=== PATIENT | male | born 1980 | race Hispanic/Latino ===

== ENCOUNTER 2017-04-14 21:01 | Inpatient (IN) | payer MEDICAID ==
[2017-04-14 21:20] VITALS: BMI 19.2
[2017-04-14 21:37] LABS: BASO # 0.1 K/uL (0.0-0.2); BASO % 0.9 % (0.0-2.0); EOS # 0.5 K/uL (0.0-0.7); HEMATOCRIT 39.4 % (35.0-51.0); LYMPH # 3.4 K/uL (1.0-4.3); LYMPH % 31.9 % (20.0-40.0); MEAN CELL VOLUME 87.8 fL (80.0-94.0); MEAN CORPUSCULAR HEMOGLOBIN 29.1 pg (27.0-31.0); MEAN CORPUSCULAR HGB CONC 33.2 g/dL (33.0-37.0); MEAN PLATELET VOLUME 7.9 fL (7.2-11.7); MONO # 0.7 K/uL (0.0-0.8); MONO % 6.9 % (0.0-10.0); RED CELL DISTRIBUTION WIDTH 13.8 % (11.5-14.5); WHITE BLOOD COUNT 10.7 K/uL (4.8-10.8)
[2017-04-14 21:42] LABS: RBC URINE 4 /hpf (0-3); URINE BACTERIA RARE (<OCC); URINE BILIRUBIN NEGATIVE (NEGATIVE); URINE BLOOD NEGATIVE (NEGATIVE); URINE COLOR Yellow (YELLOW); URINE GLUCOSE (UA) NORMAL (Normal); URINE KETONE TRACE mg/dL (NEGATIVE); URINE LEUKOCYTE ESTERASE NEG Leu/uL (Negative); URINE PROTEIN NEGATIVE (NEGATIVE); URINE UROBILINOGEN NORMAL mg/dL (0.2-1.0); WBC URINE 1 /hpf (0-5)
[2017-04-14 21:46] LABS: CHLORIDE 101 mmol/L (98-107)
[2017-04-14 21:47] LABS: POTASSIUM 3.4 mmol/L (3.6-5.2); SODIUM 139 mmol/L (132-148)
[2017-04-14 21:49] LABS: ALB/GLOB RATIO 1.3 (1.0-2.1); ALKALINE PHOSPHATASE 50 U/L (38-126); AST/SGOT 35 U/L (17-59); BILIRUBIN,TOTAL 0.5 mg/dL (0.2-1.3); BLOOD UREA NITROGEN 16 mg/dL (9-20); CARBON DIOXIDE 26 mmol/L (22-30); GFR AFRICAN-AMERICAN > 60; TOTAL PROTEIN 6.9 g/dL (6.3-8.3)
[2017-04-14 21:50] LABS: ALCOHOL SERUM < 10 mg/dl (0-10); ALT/SGPT 42 U/L (21-72); CALCIUM 8.6 mg/dl (8.6-10.4); GLUCOSE,RANDOM 114 mg/dL (75-110)
--- NOTE | 2017-04-14 21:55 | C.PDOC ---
History Of Present Illness Patient is a 36 year old male who was brought to the ER by EMS and police for SI and HI. Patient is also a polysubstance abuser requesting detox. Patient is speaking on the phone; it was reported he was making an illusion of a hand gun in his home. Denies any physical complaints at this time. Time Seen by Provider: 04/14/17 21:16 Chief Complaint (Nursing): Substance Abuse History Per: Patient History/Exam Limitations: no limitations Onset/Duration Of Symptoms: Hrs Current Symptoms Are (Timing): Still Present Suicide/Self Injury Attempted (Context): None Modifying Factor(s): None Severity: None Associated Symptoms: Suicidal Thoughts. denies: Depression, Suicidal Plan Recent travel outside of the [place]: No Additional History Per: EMS, Law Enforcement Past Medical History Reviewed: Historical Data, Nursing Documentation, Vital Signs Vital Signs: Last Vital Signs Temp 98.0 F 04/14/17 21:12 Pulse 64 04/14/17 21:12 Resp 18 04/14/17 21:12 BP 137/87 04/14/17 21:12 Pulse Ox 97 04/14/17 23:45 - Medical History PMH: Asthma Surgical History: No Surg Hx - [facility] Procedures DETOXIFICATION SERVICES FOR SUBSTANCE ABUSE TREATMENT (12/02/16) GROUP PAINT LINE OPERATOR FOR SUBSTANCE ABUSE TREATMENT, PSYCHOEDUCATION (12/02/16) GROUP PAINT LINE OPERATOR FOR SUBSTANCE ABUSE, COGNITIVE BEHAVIORAL (12/02/16) PHARMACOTHERAPY FOR SUBSTANCE ABUSE TREATMENT, ANTABUSE (12/02/16) Family History: States: Unknown Family Hx - Social History Hx Alcohol Use: Yes Hx Substance Use: Yes - Immunization History Hx Tetanus Toxoid Vaccination: No Hx Influenza Vaccination: No Hx Pneumococcal Vaccination: No Review Of Systems Constitutional: Negative for: Fever, Chills Gastrointestinal: Negative for: Nausea, Vomiting, Diarrhea Psych: Positive for: Suicidal ideation, Other (Homicidal ideation) Physical Exam - Physical Exam Appears: Non-toxic, No Acute Distress, Other (Pleasant. Cooperative.) Skin: Normal Color, Warm, Dry Head: Atraumatic, Normacephalic Oral Mucosa: Moist Chest: Symmetrical, No Tenderness Cardiovascular: Rhythm Regular, No Murmur Respiratory: Normal Breath Sounds, No Rales, No Rhonchi, No Wheezing Gastrointestinal/Abdominal: Soft, No Tenderness Neurological/Psych: Oriented x3, Normal Speech, Normal Cognition ED Course And Treatment - Laboratory Results Result Diagrams: 04/14/17 09:36 04/14/17 09:36 Lab Interpretation: Abnormal (tox + opiates, cannabanoids, etoh neg.) O2 Sat by Pulse Oximetry: 97 (Room air) Pulse Ox Interpretation: Normal Reevaluation Time: 23:45 Reassessment Condition: Unchanged (remains comfortable, cooperative) Medical Decision Making Medical Decision Makin: pending psych/Crisis dispo 0100: re-eval, calm cooperative signed over to Dr. Jonas for overnight. Disposition - Disposition Disposition Time: 01:00 Condition: GOOD - Clinical Impression Clinical Impression: Drug dependence - Scribe Statement The provider has reviewed the documentation as recorded by the Scribe Moshe Cordova All medical record entries made by the Scribe were at my direction and personally dictated by me. I have reviewed the chart and agree that the record accurately reflects my personal performance of the history, physical exam, medical decision making, and the department course for this patient. I have also personally directed, reviewed, and agree with the discharge instructions and disposition. Physician Patient Turnover Patient Signed Over To: Oscar Jonas Handoff Comments: dispo per Crisis Eval
[2017-04-15] MEDS ORDERED: Potassium Chloride 20 mEq ER Tab PO STA (01:58)
[2017-04-15] MEDS ORDERED: Potassium Chloride 20 mEq ER Tab PO ONE (02:13)
--- NOTE | 2017-04-15 09:58 | PCM.PSYCH ---
Initial Psychiatric Evaluation - Initial Psychiatric Evaluation Type of Admission: Voluntary Legal Status: Capacity Chief Complaint (in patient's own words): "I relapsed" History of Present Illness and Precipitating Events: The pt is seen, chart reviewed, case discussed. He is known from a previous admission this year. 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 He also smokes MJ every other day and cigarettes. Social drinker. Denies other drug use but sometimes takes painkillers. This is his 2nd detox and no rehabs. He went to [place] to be with some family members but he claims he relapsed upon return to [place] few weeks ago. No psych sxs but mild anxiety Past psych hx: Denies but has attended anger mgt classes at [facility] Medical hx: Denies Family psych hx: Denies Current Medications: Active Medications Generic Name Dose Route Start Last Admin Trade Name Freq PRN Reason Stop Dose Admin Gabapentin 300 mg 04/15/17 10:00 Neurontin PO TID CHERYL Trazodone HCl 50 mg 04/15/17 05:31 Desyrel PO HS PRN Insomnia Past Psychiatric History - Past Psychiatric History Previous Treatment History: None Pertinent Medical Hx (Current Medical&Sleep Prob, Allergies): Allergies Allergy/AdvReac Type Severity Reaction Status Date / Time No Known Allergies Allergy Verified 04/14/17 21:20 traZODone [Desyrel] 100 mg PO HS #30 tab 12/05/16 Review of Systems - Psychiatric Psychiatric: Abnormal Sleep Pattern, Anxiety. absent: Depression, Hallucinations, Homicidal Ideation, Memory Loss, Suicidal Ideation Mental Status Examination - Personal Presentation Personal Presentation: Looks younger than stated age - Affect Affect: Broad (odd at times) - Motor Activity Motor Activity: Calm - Reliability in Providing Information Reliability in Providing Information: Good - Speech Speech: Organized - Mood Mood: Anxious - Formal Thought Process Formal Thought Process: No Impairment - Cognitive Functions Orientation: Person, Place, Situation, Time Sensorium: Alert Attention/Concentration: Attentive Estimate of Intelligence: Average Judgement: Intact, as evidence by: Insight regarding need for hospitalization Memory: Recent intact, as evidence by: Ability to recall events of the day - Risk Risk: Withdrawal, Diminished functioning - Strength & Assets Inventory Strength & Assets Inventory: Cooperative DSM 5 DX - DSM 5 DSM 5 Diagnosis: Opioid withdrawal Opioid use d/o - severe cannabis use d/o - severe Tobacco use d/o - severe - Recommended/Plan of Treatment Treatment Recommendations and Plan of Treatment: Subutex detox As needed meds Attend groups and activities [place] and CBT for all three substances Nicotine patch for tobacco Support and psychoed 33 min Projected ELOS: 4 days Prognosis: Good with treatment Discharge Plan and Discharge Criteria: No wdw sxs Attend IOP and consider MAT, ie Vivitrol - Smoking Cessation Smoking Cessation Initiated: Yes
[2017-04-15] MEDS ORDERED: Buprenorphine Hydrochloride 2 mg SL ONE ×3 (12:30→16:45)
[2017-04-15] MEDS ORDERED: Aluminum Hydroxide/Magnesium Hydroxide Susp (30 mL) PO PRN (14:03)
[2017-04-15 17:58] LABS: CHLORIDE 94 mmol/L (98-107); SODIUM 135 mmol/L (132-148)
[2017-04-15 18:01] LABS: BLOOD UREA NITROGEN 17 mg/dL (9-20); CARBON DIOXIDE 32 mmol/L (22-30); GFR AFRICAN-AMERICAN > 60; GLUCOSE,RANDOM 81 mg/dL (75-110)
[2017-04-15 18:02] LABS: CALCIUM 8.9 mg/dl (8.6-10.4); MAGNESIUM 2.1 mg/dL (1.6-2.3)
[2017-04-16] MEDS: Buprenorphine Hydrochloride 2 mg SL SCH (11:24)
--- NOTE | 2017-04-16 12:48 | CARD ---
APPROVED REPORT EKG Measurement Heart [id number] <Conclusion> Normal sinus rhythm with sinus arrhythmia Normal ECG
[2017-04-16] MEDS: Silver Sulfadiazine 1% Cream (20 gm) TOP SCH (17:48)
--- NOTE | 2017-04-17 00:03 | PCM.PYCHPN ---
Psychiatric Progress Note - Psychiatric Progress Note Patient seen today, length of contact: 17 min Patient Chief Complaint: "I was withdrawing" Problems Identified/Issues Discussed: The pt is seen, chart reviewed, case discussed with staff. Support given, CBT and AR used briefly No new symptoms reported, improving slowly and needs some more time No SEs from medications, risks discussed. After care discussed - still vague and evasive. Risks discussed Medication Change: Yes (Silverd[place], detox changes daily) Medical Record Reviewed: Yes Mental Status Examination - Cognitive Function Orientation: Person, Place, Situation, Time Memory: Intact Attention: WNL Concentration: WNL Association: WN Fund of Knowledge: [facility] - Mood Mood: Anxious - Affect Affect: Broad (odd at times) - Speech Speech: Appropriate - Formal Thought Process Formal Thought Process: No Impairment - Suicidal Ideation Suicidal Ideation: No - Homicidal Ideation Homicidal Ideation: No Goal/Treatment Plan - Goal/Treatment Plan Need for Continued Stay: Discharge may exacerbated symptoms, Severe functional impairment Progress Toward Problem(s) and Goals/Treatment Plan: Subutex detox As needed meds Attend groups and activities [place] and CBT for all three substances Nicotine patch for tobacco Support and psychoed Estimated Date of D/C: 04/18/17 - Smoking Cessation Smoking Cessation Initiated: Yes
--- NOTE | 2017-04-17 10:32 | PCM.PYCHPN ---
Psychiatric Progress Note - Psychiatric Progress Note Patient seen today, length of contact: 16 min Patient Chief Complaint: "I am alright" Problems Identified/Issues Discussed: The pt is seen, chart reviewed, case discussed with staff. Support given again, VT used briefly No new symptoms reported, improving slowly and needs some more time No SEs from medications reported. No breakthru sxs After care discussed - still "undecided." Risks of poor after care, incl. relapse and OD discussed. He has an odd, indifferent smile on his face most of the time. Medication Change: Yes (Silverdine, detox changes daily) Medical Record Reviewed: Yes Mental Status Examination - Cognitive Function Orientation: Person, Place, Situation, Time Memory: Intact Attention: WNL Concentration: WNL Association: WNL Fund of Knowledge: WNL - Mood Mood: Anxious - Affect Affect: Broad (odd at times) - Speech Speech: Appropriate - Formal Thought Process Formal Thought Process: No Impairment - Suicidal Ideation Suicidal Ideation: No - Homicidal Ideation Homicidal Ideation: No Goal/Treatment Plan - Goal/Treatment Plan Need for Continued Stay: Discharge may exacerbated symptoms, Severe functional impairment Progress Toward Problem(s) and Goals/Treatment Plan: Subutex detox As needed meds Attend groups and activities [place] and CBT for all three substances Nicotine patch for tobacco Support and psychoed Refer to IOP and MAt Estimated Date of D/C: 04/18/17
[2017-04-17] MEDS: Silver Sulfadiazine 1% Cream (20 gm) TOP SCH ×2 (10:46→18:07)
[2017-04-17] MEDS: Buprenorphine Hydrochloride 2 mg SL SCH (10:46)
[2017-04-18 06:18] VITALS: RESP 18
--- NOTE | 2017-04-18 08:48 | PCM.PYCHDC ---
Mental Status Examination - Mental Status Examination Orientation: Person, Place, Situation, Time Memory: Intact Mood: Neutral Affect: Constricted Speech: Appropriate Attention: WNL Concentration: WNL Association: WNL Fund of Knowledge: WNL Formal Thought Process: No Impairment Suicidal Ideation: No Current Homicidal Ideation?: No Discharge Summary - Discharge Note Reason for Hospitalization: Heroin detox Consultations:: List each consultation separately and include: 1. Reason for request. 2. Findings. 3. Follow-up Summary of Hospital Course include:: 1. Description of specific treatment plan utilized for patients during their course of treatmen. 2. Summarize the time- course for resolution of acute symptoms and/or regressed behaviors. 3. Describe issues identified and worked on during hospitalization. 4. Describe medication utilized. 5. Describe medical problems identified and treated. 6. Reassessment of suicide risk Summary of Hospital Course: On admission: The pt is seen, chart reviewed, case discussed. He is known from a previous admission this year. 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 He also smokes MJ every other day and cigarettes. Social drinker. Denies other drug use but sometimes takes painkillers. This is his 2nd detox and no rehabs. He went to [place] to be with some family members but he claims he relapsed upon return to [place] few weeks ago. No psych sxs but mild anxiety Past psych hx: Denies but has attended anger mgt classes at [facility] [place] Medical hx: Denies Family psych hx: Denies Hospital course: The pt was admitted and started on treatment with psychotherapy, support, psychoeducation and medications. [place] and CBT used. The pt attended groups and activities, as well as milieu therapy. All the risks and benefits of medications are discussed and the patient understood and agreed. He is also given Silveradinbe for his severe sunburn with good result. After care discussed with the patient. He was interested in anything but meetings. Risks discussed MAt recommended. - Final Diagnosis (DSM 5) Condition upon Discharge: GOOD DSM 5: Opioid withdrawal Opioid use d/o - severe cannabis use d/o - severe Tobacco use d/o - severe Disposition: HOME/ ROUTINE Follow-up Treatment Plan: Continue below medications after discharge. Follow after care plan as discussed. Use relapse prevention skills Return to ER or call 911 if suicidal, homicidal or symptoms relapse. Stay away from stress, alcohol and drugs. See primary doctor once a year. Prescriptions/Medication Reconciliation: Gabapentin [Neurontin] 300 mg PO TID #90 cap traZODone [Desyrel] 50 mg PO HS PRN #30 tab PRN Reason: Insomnia
[2017-04-18] MEDS: Silver Sulfadiazine 1% Cream (20 gm) TOP SCH (10:28)
[2017-04-18] MEDS: Buprenorphine Hydrochloride 2 mg SL SCH (10:28)
[2017-04-18 13:23] VITALS: BP 105/60; PULSE 66; TEMP 98.2; O2SAT 98
== END 2017-04-18 14:00 | disposition home or self-care (01) | DRG 745 ==
LOC: C.ER 21:01 → C.7D 04-15 01:35
PROVIDERS: ADMIT Psychiatry & Neurology Psychiatry; ATTEND Psychiatry & Neurology Psychiatry
PROC: HZ2ZZZZ Detoxification Services for Substance Abuse Treatment (ICD-10-PCS; principal; 2017-04-15)
PROC: HZ59ZZZ Individual Psychotherapy for Substance Abuse Treatment, Supportive (ICD-10-PCS; 2017-04-15)
PROC: HZ46ZZZ Group Counseling for Substance Abuse Treatment, Psychoeducation (ICD-10-PCS; 2017-04-15)
PROC: HZ90ZZZ Pharmacotherapy for Substance Abuse Treatment, Nicotine Replacement (ICD-10-PCS; 2017-04-15)
DX: F11.23 Opioid dependence with withdrawal (principal); F17.210 Nicotine dependence, cigarettes, uncomplicated; F12.10 Cannabis abuse, uncomplicated; J45.909 Unspecified asthma, uncomplicated

== ENCOUNTER 2017-06-20 15:00 | Inpatient (IN) | payer MEDICAID ==
[2017-06-20 15:00] VITALS: BMI 19.2
[2017-06-20 15:47] LABS: RBC URINE 3 /hpf (0-3); URINE BILIRUBIN NEGATIVE (NEGATIVE); URINE BLOOD NEGATIVE (NEGATIVE); URINE COLOR Yellow (YELLOW); URINE GLUCOSE (UA) NORMAL (Normal); URINE KETONE TRACE mg/dL (NEGATIVE); URINE LEUKOCYTE ESTERASE NEG Leu/uL (Negative); URINE PROTEIN NEGATIVE (NEGATIVE); URINE UROBILINOGEN NORMAL mg/dL (0.2-1.0); WBC URINE < 1 /hpf (0-5)
--- NOTE | 2017-06-20 15:48 | C.PDOC ---
History Of Present Illness 36 year old male presents to the ED requesting detox from heroin. Patient has been prescreened and states last use was just prior to arrival. Patient denies any somatic complaints. Time Seen by Provider: 06/20/17 15:20 Chief Complaint (Nursing): Substance Abuse History Per: Patient History/Exam Limitations: no limitations Suicide/Self Injury Attempted (Context): None Modifying Factor(s): Narcotics (heroin ) Severity: None Pain Scale Rating Of: 0 Associated Symptoms: denies: Suicidal Thoughts, Suicidal Plan Involuntary Hold By: None Recent travel outside of the [place]: No Past Medical History Reviewed: Historical Data, Nursing Documentation, Vital Signs Vital Signs: Last Vital Signs Temp 98.2 F 06/20/17 15:11 Pulse 68 06/20/17 15:11 Resp 20 06/20/17 15:11 BP 129/84 06/20/17 15:11 Pulse Ox 98 06/20/17 16:28 - Medical History PMH: Asthma - [facility] Procedures DETOXIFICATION SERVICES FOR SUBSTANCE ABUSE TREATMENT (04/15/17) GROUP TRACTOR OPERATOR FOR SUBSTANCE ABUSE TREATMENT, PSYCHOEDUCATION (04/15/17) GROUP TRACTOR OPERATOR FOR SUBSTANCE ABUSE, COGNITIVE BEHAVIORAL (12/02/16) INDIV PSYCHOTHERAPY FOR SUBSTANCE ABUSE TREATMENT, SUPPORT (04/15/17) PHARMACOTHERAPY FOR SUBSTANCE ABUSE TREATMENT, ANTABUSE (12/02/16) PHARMACOTHERAPY FOR SUBSTANCE ABUSE, NICOTINE REPLACE (04/15/17) Family History: States: Unknown Family Hx - Social History Hx Alcohol Use: No Hx Substance Use: Yes - Immunization History Hx Tetanus Toxoid Vaccination: No Hx Influenza Vaccination: No Hx Pneumococcal Vaccination: No Review Of Systems Except As Marked, All Systems Reviewed And Found Negative. Constitutional: Negative for: Fever, Chills Cardiovascular: Negative for: Chest Pain, Palpitations Respiratory: Negative for: Cough, Shortness of Breath Gastrointestinal: Negative for: Nausea, Vomiting, Abdominal Pain, Diarrhea Genitourinary: Negative for: Dysuria Neurological: Negative for: Weakness, Numbness Psych: Negative for: Anxiety, Depression, Psychosis, Suicidal ideation Physical Exam - Physical Exam Appears: Well, Non-toxic, No Acute Distress Skin: Warm, Dry Head: Atraumatic, Normacephalic Eye(s): bilateral: Normal Inspection, PERRL, EOMI Oral Mucosa: Moist Neck: Supple Chest: Symmetrical, No Deformity Cardiovascular: Rhythm Regular Respiratory: Normal Breath Sounds, No Rales, No Rhonchi, No Wheezing Gastrointestinal/Abdominal: Soft, No Tenderness, No Distention, No Guarding, No Rebound Extremity: Normal ROM, No Tenderness Neurological/Psych: Oriented x3, Normal Speech, Normal Cognition Gait: Steady ED Course And Treatment - Laboratory Results Result Diagrams: 06/20/17 15:40 06/20/17 15:40 ECG: Interpreted By Me, Viewed By Me ECG Rhythm: Sinus Rhythm Rate From EC O2 Sat by Pulse Oximetry: 98 (room air ) Progress Note: EKG, CXR, UA, and labs were ordered. Medical Decision Making Medical Decision Making: EKG shows NSR at 60bpm with sinus arrhythmia. Cxray negative. Labs grossly normal except for low potassium which was replaced. Patient medically cleared for psychiatric admission. 4:37PM Patient accepted by Dr. Stewart Disposition - Disposition Disposition: HOSPITALIZED Disposition Time: 16:06 Condition: FAIR Forms: [facility] [facility] (Luxembourgish) - Clinical Impression Clinical Impression: Opiate abuse, continuous - Scribe Statement The provider has reviewed the documentation as recorded by the Scribe Diane Devi All medical record entries made by the Scribe were at my direction and personally dictated by me. I have reviewed the chart and agree that the record accurately reflects my personal performance of the history, physical exam, medical decision making, and the department course for this patient. I have also personally directed, reviewed, and agree with the discharge instructions and disposition.
[2017-06-20 15:49] LABS: BASO % 0.5 % (0.0-2.0); EOS # 0.4 K/uL (0.0-0.7); EOS % 4.6 % (0.0-4.0); LYMPH # 3.3 K/uL (1.0-4.3); LYMPH % 34.2 % (20.0-40.0); MEAN CELL VOLUME 87.4 fL (80.0-94.0); MEAN CORPUSCULAR HEMOGLOBIN 29.2 pg (27.0-31.0); MEAN CORPUSCULAR HGB CONC 33.4 g/dL (33.0-37.0); MEAN PLATELET VOLUME 8.2 fL (7.2-11.7); MONO # 0.7 K/uL (0.0-0.8); RED CELL DISTRIBUTION WIDTH 13.5 % (11.5-14.5); WHITE BLOOD COUNT 9.6 K/uL (4.8-10.8)
[2017-06-20 16:15] LABS: CHLORIDE 104 mmol/L (98-107)
[2017-06-20 16:16] LABS: SODIUM 144 mmol/L (132-148)
[2017-06-20 16:18] LABS: ALB/GLOB RATIO 1.3 (1.0-2.1); AST/SGOT 25 U/L (17-59); BILIRUBIN,TOTAL 0.4 mg/dL (0.2-1.3); CARBON DIOXIDE 27 mmol/L (22-30); GFR AFRICAN-AMERICAN > 60
[2017-06-20 16:19] LABS: ALCOHOL SERUM < 10 mg/dl (0-10); ALKALINE PHOSPHATASE 47 U/L (38-126); ALT/SGPT 24 U/L (21-72); BLOOD UREA NITROGEN 15 mg/dL (9-20); CALCIUM 9.4 mg/dl (8.6-10.4); GLUCOSE,RANDOM 83 mg/dL (75-110)
--- NOTE | 2017-06-20 16:22 | RAD ---
HISTORY: detox COMPARISON: None available. TECHNIQUE: Chest PA and lateral FINDINGS: LUNGS: No focal consolidation. Please note that chest x-ray has limited sensitivity for the detection of pulmonary masses. PLEURA: No significant pleural effusion identified. No definite pneumothorax . CARDIOVASCULAR: The cardiomediastinal silhouette appears within normal limits of size. OSSEOUS STRUCTURES: No acute osseous abnormality identified. VISUALIZED UPPER ABDOMEN: Unremarkable. OTHER FINDINGS: None. IMPRESSION: No focal consolidation, significant pleural effusion, or definite pneumothorax identified.
[2017-06-20] MEDS ORDERED: Potassium Chloride 20 mEq ER Tab PO STA ×2 (16:26→16:27)
[2017-06-20] MEDS ORDERED: Potassium Chloride 20 mEq ER Tab PO ONE (16:46)
--- NOTE | 2017-06-20 17:03 | PCM.BM ---
<Valencia Munoz - Last Filed: 06/20/17 17:01> Treatment Plan Problems - Problems identified on initial assessmt potiential for opiate withdrawal Date Initiated: 06/20/17 Time Initiated: 17:01 Assessment reference: NA Status: Active ineffective coping Date Initiated: 06/20/17 Time Initiated: 17:02 Assessment reference: NA Status: Active Treatment assets and liabiliti Patient Assests: cooperative, motivated, ADL independent, physically healthy Patient Liabilities: substance abuse - Milieu Protocol Maintain good personal hygiene: daily Encourage regular showers, daily Remind patient to perform daily oral care, daily Assist patient to perform ADL's Maintain personal safety: every shift Educate patient to report safety concerns to staff, every shift Monitor environment for contraband/sharps Medication safety: Monitor for expected outcome, potential side effects: every shift, Assess barriers to learning: every shift, Assess readiness for medication education: every shift <Jazlyn Taylor - Last Filed: 06/21/17 11:49> Family Contact Family involvement: Patient does not wish Family/SO involvement Family contact: Patient declines to allow family contact at present - Goals for Treatment Patient goals for treatment: Complete detox and transition to outpatient psychotherapy. Discharge/Continuing Care - Education Needs Education Needs: Patient Medication, Patient Diagnosis/Disease Process, Patient Coping Skills, Patient Placement options, Patient Community resources - Discharge Discharge Criteria: No longer exhibiting s/s of withdrawal, Reduction of target symptoms Discharge to:: Home - Treatment Team Participation Patient/Family/SO Statement: 06/21/17 11:48 "I wanna do psychotherapy but I don't know if I want to do medication--it's like replacing 1 drug for another". Discussed with Family/SO: No Was Patient/Family/SO present at Treatment Team Meeting: Yes
[2017-06-20] MEDS ORDERED: Aluminum Hydroxide/Magnesium Hydroxide Susp (30 mL) PO PRN (18:15)
[2017-06-20] MEDS ORDERED: Buprenorphine Hydrochloride 2 mg SL ONE ×2 (20:58→22:00)
[2017-06-21 08:43] LABS: CHLORIDE 106 mmol/L (98-107); POTASSIUM 3.9 mmol/L (3.6-5.2); SODIUM 141 mmol/L (132-148)
[2017-06-21 08:45] LABS: GFR AFRICAN-AMERICAN > 60
[2017-06-21 08:46] LABS: BLOOD UREA NITROGEN 19 mg/dL (9-20); CALCIUM 8.1 mg/dl (8.6-10.4); CARBON DIOXIDE 26 mmol/L (22-30); GLUCOSE,RANDOM 79 mg/dL (75-110)
[2017-06-21] MEDS: Buprenorphine Hydrochloride 2 mg SL SCH (09:48)
--- NOTE | 2017-06-21 14:37 | PCM.PSYCH ---
Initial Psychiatric Evaluation - Initial Psychiatric Evaluation Type of Admission: Voluntary Legal Status: Capacity Chief Complaint (in patient's own words): "I need to change my life." History of Present Illness and Precipitating Events: Pt. is seen, chart reviewed, and case discussed with staff. Pt. is a 36 y/o male who has a long history of heroin dependence and came to the hospital once again to get help in detox. As per patient, he is snorting 5 bags of heroin daily. He started heroin at 20 y/o and never injected IV. Pt. also reports using oxycodone 1-2 tablets (unspecified duration). Pt. reports smoking marijuana sporadically. Pt. reports drinking 1-2 shots occasionally. Pt. reports smoking 3-4 cigarettes daily and asked for Nicoderm patch. He denies use of Xanax and denies selling drugs. Pt. is known from 2 previous admissions to detox this year. After his last visit 2 months ago, he did not go anywhere else for after care and relapsed. No psych sxs. 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 Pt. reports he is strongly willing to follow up with psychotherapy after detox this time around. Current Medications: Active Medications Generic Name Dose Route Start Last Admin Trade Name Freq PRN Reason Stop Dose Admin Al Hydrox/Mg Hydrox/Simethicone 30 ml 06/20/17 18:15 Maalox 30 Ml PO TID PRN Indigestion / Heartburn Buprenorphine HCl 8 mg 06/21/17 10:00 06/21/17 09:48 Subutex SL 06/26/17 09:59 8 mg DAILY CHERYL Administration Taper Clonidine HCl 0.1 mg 06/20/17 18:15 Catapres PO Q8 PRN COWS Score More or Equal to 5 Gabapentin 300 mg 06/21/17 10:00 06/21/17 13:38 Neurontin PO 300 mg TID CHERYL Administration Hydroxyzine HCl 50 mg 06/20/17 18:18 Atarax PO Q6H PRN Anxiety Loperamide HCl 2 mg 06/20/17 18:15 Imodium PO Q8 PRN Diarrhea Ondansetron HCl 4 mg 06/20/17 18:15 Zofran Tab PO Q8 PRN Nausea/Vomiting Trazodone HCl 100 mg 06/20/17 22:00 06/20/17 22:15 Desyrel PO 100 mg HS CHERYL Administration Past Psychiatric History - Past Psychiatric History Pertinent Medical Hx (Current Medical&Sleep Prob, Allergies): Allergies Allergy/AdvReac Type Severity Reaction Status Date / Time No Known Allergies Allergy Verified 06/20/17 15:13 traZODone [Desyrel] 100 mg PO HS #30 tab 12/05/16 Gabapentin [Neurontin] 300 mg PO TID #90 cap 04/18/17 Silver Sulfadiazine 1% 20 gm [Silvadene 1% 20 gm] 1 ea TOP BID 04/18/17 traZODone [Desyrel] 50 mg PO HS PRN #30 tab 04/18/17 Review of Systems - Neurological Neurological: UNREMARKABLE - Psychiatric Psychiatric: As Per HPI Mental Status Examination - Personal Presentation Personal Presentation: Looks younger than stated age - Affect Affect: Broad Additional comments: (Odd at times) - Motor Activity Motor Activity: Calm - Reliability in Providing Information Reliability in Providing Information: Good - Speech Speech: Organized - Mood Mood: Anxious - Formal Thought Process Formal Thought Process: No Impairment - Obsessions/Compulsions Obsessions: No Compulsions: No - Cognitive Functions Orientation: Person, Place, Situation, Time Sensorium: Alert Attention/Concentration: Attentive Abstract Thinking: [place] Estimate of Intelligence: Average Judgement: Intact, as evidence by: Insight regarding need for hospitalization Memory: Recent intact, as evidence by: Ability to recall events of the day - Strength & Assets Inventory Strength & Assets Inventory: Cooperative DSM 5 DX - DSM 5 DSM 5 Diagnosis: Opioid use d/o-severe Opioid withdrawal Cannabis use d/o-mild Tobacco use d/o-mild - Recommended/Plan of Treatment Treatment Recommendations and Plan of Treatment: Opioid use d/o-severe CBT for relapse prevention Psychoeducation Supportive therapy, individual therapy Use KS for abstinence Opioid withdrawal Support and Psychoeducation daily Attend group activities daily Subutex detox Clonidine 0.1 mg PO Q8 PRN Cannabis use disorder-mild Attend groups and activities Use [place] for abstinence CBT for relapse prevention Support and psychoeducation Nicotine patch for tobacco use [place] 33 min Projected ELOS: 4-5 days Prognosis: good with MAT - Smoking Cessation Smoking Cessation Initiated: Yes
--- NOTE | 2017-06-22 08:04 | CARD ---
APPROVED REPORT EKG Measurement Heart [id number] <Conclusion> Normal sinus rhythm with sinus arrhythmia Minimal voltage criteria for LVH, may be normal variant Borderline ECG
[2017-06-22] MEDS ORDERED: Buprenorphine Hydrochloride 2 mg SL SCH (08:40)
[2017-06-22] MEDS: Buprenorphine Hydrochloride 2 mg SL SCH (09:46)
[2017-06-23] MEDS: Buprenorphine Hydrochloride 2 mg SL SCH (09:38)
[2017-06-24 06:13] VITALS: O2SAT 98
[2017-06-24] MEDS: Buprenorphine Hydrochloride 2 mg SL SCH (09:46)
[2017-06-24 10:11] VITALS: BP 143/78; PULSE 83; RESP 20; TEMP 97.4
--- NOTE | 2017-06-24 18:44 | PCM.PYCHPN ---
Psychiatric Progress Note - Psychiatric Progress Note Patient seen today, length of contact: 16 Patient Chief Complaint: i have the hiccups Problems Identified/Issues Discussed: erika relapse prevention Medical Problems: nothing acute Diagnostic Results: reviewed DSM 5 Symptoms Update: no acute withdrawal symptom Medication Change: Yes (subutex taper) Medical Record Reviewed: Yes Mental Status Examination - Cognitive Function Orientation: Person, Place, Situation, Time Memory: Intact Attention: WNL Concentration: WNL Association: WNL Fund of Knowledge: WNL - Mood Mood: Anxious - Affect Affect: Broad - Speech Speech: Appropriate - Formal Thought Process Formal Thought Process: No Impairment - Suicidal Ideation Suicidal Ideation: No - Homicidal Ideation Homicidal Ideation: No Goal/Treatment Plan - Goal/Treatment Plan Progress Toward Problem(s) and Goals/Treatment Plan: opiate withdrawal no acute symptoms opiate use disorder [place] [facility] groups supportive psychotherapy Estimated Date of D/C: 06/24/17 - Smoking Cessation Smoking Cessation Initiated: Yes
--- NOTE | 2017-06-24 18:49 | PCM.PYCHPN ---
Psychiatric Progress Note - Psychiatric Progress Note Patient seen today, length of contact: 16 Patient Chief Complaint: ii want suboxone and therapy Problems Identified/Issues Discussed: PAWS Medical Problems: nothing acute Diagnostic Results: reviwed DSM 5 Symptoms Update: forward thinking Medication Change: Yes (subutex taper) Mental Status Examination - Cognitive Function Orientation: Person, Place, Situation, Time Memory: Intact Attention: WNL Concentration: WNL Association: WNL Fund of Knowledge: WNL - Mood Mood: Anxious - Affect Affect: Broad - Speech Speech: Appropriate - Formal Thought Process Formal Thought Process: No Impairment - Suicidal Ideation Suicidal Ideation: No - Homicidal Ideation Homicidal Ideation: No Goal/Treatment Plan - Goal/Treatment Plan Need for Continued Stay: Discharge may exacerbated symptoms Progress Toward Problem(s) and Goals/Treatment Plan: opiate withdrawal no acute symptoms except increased anxiety opiate use disorder [place] [facility] psychotherapy Estimated Date of D/C: 06/24/17 - Smoking Cessation Smoking Cessation Initiated: Yes
== END 2017-06-24 12:15 | disposition home or self-care (01) | DRG 745 ==
LOC: C.ER 15:00 → C.7D 16:36
PROVIDERS: ADMIT Psychiatry & Neurology Psychiatry; ATTEND Psychiatry & Neurology Psychiatry
PROC: HZ59ZZZ Individual Psychotherapy for Substance Abuse Treatment, Supportive (ICD-10-PCS; principal; 2017-06-20)
PROC: HZ52ZZZ Individual Psychotherapy for Substance Abuse Treatment, Cognitive-Behavioral (ICD-10-PCS; 2017-06-20)
PROC: HZ2ZZZZ Detoxification Services for Substance Abuse Treatment (ICD-10-PCS; 2017-06-20)
DX: F11.23 Opioid dependence with withdrawal (principal); F41.9 Anxiety disorder, unspecified; F12.90 Cannabis use, unspecified, uncomplicated; J45.909 Unspecified asthma, uncomplicated; Z72.0 Tobacco use

== ENCOUNTER 2017-12-14 14:22 | Emergency (ER) | payer SELFPAY ==
[2017-12-14 14:33] VITALS: BMI 24.2
[2017-12-14 14:36] VITALS: BP 128/80; PULSE 64; RESP 18; TEMP 98.2; O2SAT 96
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
== END 2017-12-14 15:58 | disposition home or self-care (01) ==
LOC: C.ER 14:22
DX: F11.10 Opioid abuse, uncomplicated (principal)